=== PATIENT | female | born 1975 | race Caucasian/White ===

== ENCOUNTER → 2016-09-09 | Outpatient (CLI) | payer BC ==
[~2016-09-09] MED LIST: ALBU1AER9 INH; ENOX60IN SQ; HYDR2.5C37 TOP; HYDR25SU20 PR; OMEP20CA9 PO; SERT25TA PO; SERT50TA PO
--- NOTE | 2016-09-09 13:52 | DIAGNOSTIC IMAGING REPORT ---
ULTRASOUND KIDNEYS AND BLADDER CLINICAL HISTORY: Preoperative examination. Pdncwht-Ejleqmlgh-Pyqdn syndrome. COMPARISON STUDY: Abdominal CT dated 07/13/2014. TECHNIQUE: Real-time, grayscale, and color flow sonography of the kidneys and bladder is performed. Images are reviewed in the transverse and longitudinal planes. FINDINGS: Kidneys: The kidneys are normal in size and echotexture. The right kidney measures 8.8 x 3.6 x 3.9 cm and the left kidney measures 9.4 x 4.2 x 4.9 cm. There is no hydronephrosis. No shadowing renal calculi are identified. There is no sonographic evidence of contour deforming renal mass lesion. No perinephric fluid is identified. Bladder: The bladder is normal in appearance. Bilateral ureteral jets were seen. Upper abdomen: Splenic lesions noted. The spleen measures 14.2 cm in length. IMPRESSION: 1. Unremarkable sonographic assessment of the kidneys and bladder. 2. Splenomegaly. Electronically signed by: Marbin Eisenberg M.D. 09/09/2016 1:50 PM Dictated Date/Time: 09/09/2016 1:49 PM
--- NOTE | 2016-09-09 13:59 | DIAGNOSTIC IMAGING REPORT ---
Dyspnea ART DOP DUP UPPER EXT BILAT CLINICAL HISTORY: PREOP, CARDIAC MURMURS, SOB, [id number] SYNDROME TECHNIQUE: Real-time ultrasound COMPARISON STUDY: None FINDINGS: Right kidney measures 9 cm maximum dimension. Left kidney measures 9.4 cm maximum dimension. No evidence for hydronephrosis. Arterial Doppler demonstrates triphasic waveforms throughout. Velocities and peak characteristics are unremarkable. IMPRESSION: Normal study . No evidence for significant stenotic process. Electronically signed by: Toñito Escudero M.D. 09/09/2016 1:58 PM Dictated Date/Time: 09/09/2016 1:54 PM
--- NOTE | 2016-09-09 15:50 | ECHOCARDIOGRAM REPORT ---
*NOTICE TO RECEIVING LIBERTARIAN AGENCY This information is strictly Confidential and protected under [place] law. [place] law prohibits you from making any further disclosure of this information unless further disclosure is expressly permitted by the written consent of the person to whom it pertains or is authorized by law. A general authorization for the release of medical or other information is not sufficient for this purpose. Hospital accepts no responsibility if the information is made available to any other person, INCLUDING THE PATIENT. Interpretation Summary * Name: VALERIA MELENDEZ Study Date: 09/09/2016 01:37 PM BP: 115/83 mmHg * Patient Location: [facility] HR: 85 * : 1975 (M/d/yyyy) Gender: Female Height: 65 in * Age: 40 yrs Ethnicity: CA Weight: 135 lb * Ordering Physician: Cody Wade * Referring Physician: Cody Wade. * Performed By: Alyssa Milton RDCS * * Reason For Study: UNDIAGNOSED CARDIAC MURMURS, SOB * BSA: 1.7 m2 * History: UNDIAGNOSED CARDIAC MURMURS, SOB * -- Conclusions -- * Left ventricular systolic function is normal. * No regional wall motion abnormalities noted. * Ejection Fraction = 60-65%. * There is mild mitral regurgitation. Procedure Details * A complete two-dimensional transthoracic echocardiogram was performed (2D, M-mode, Doppler and color flow Doppler). Left Ventricle * The left ventricle is normal in size. * There is normal left ventricular wall thickness. * Left ventricular systolic function is normal. * Ejection Fraction = 60-65%. * No regional wall motion abnormalities noted. Right Ventricle * The right ventricle is not well visualized. * The right ventricular systolic function is normal as assessed by tricuspid annular plane systolic excursion (TAPSE) (normal >1.5 cm). Atria * The left atrial size is normal. * Right atrial size is normal. * No ASD detected; PFO is not assessed. Mitral Valve * The mitral valve is normal in structure and function. * There is mild mitral regurgitation. Tricuspid Valve * The tricuspid valve is normal in structure and function. * No significant tricuspid stenosis. * Significant tricuspid regurgitation is absent. Aortic Valve * The aortic valve is normal in structure and function. * No hemodynamically significant valvular aortic stenosis. * No aortic regurgitation is present. Pulmonic Valve * The pulmonary valve is not well seen, but the Doppler examination is normal without significant regurgitation or stenosis. * There is no significant pulmonary regurgitation. Great Vessels * The aortic root is normal size. * The pulmonary artery is not well visualized, but is probably normal size. Pericardium/Pleural * There is no pericardial effusion. Great Vessels * Normal inferior vena cava size and collapsability with sniff indicates a normal right atrial pressure of 3 mmHg MMode 2D Measurements and Calculations IVSd 0.61 cm IVSs 0.96 cm LVIDd 4.4 cm LVIDs 3.3 cm LVPWd 0.97 cm LVPWs 1.1 cm IVS/LVPW 0.62 FS 25.6 % EDV(Teich) 89.0 ml ESV(Teich) 43.9 ml EF(Teich) 50.7 % EDV(cubed) 86.8 ml ESV(cubed) 35.7 ml EF(cubed) 58.9 % % IVS thick 57.9 % % LVPW thick 10.6 % LV mass(C)d 108.9 grams LV mass(C)dI 65.1 grams/m\S\2 LV mass(C)s 96.8 grams LV mass(C)sI 57.8 grams/m\S\2 SV(Teich) 45.1 ml SI(Teich) 26.9 ml/m\S\2 SV(cubed) 51.1 ml SI(cubed) 30.5 ml/m\S\2 Ao root diam 3.1 cm Ao root area 7.4 cm\S\2 LA dimension 2.3 cm LA/Ao 0.74 LVAd ap4 26.9 cm\S\2 LVLd ap4 7.1 cm EDV(MOD-sp4) 84.1 ml EDV(sp4-el) 86.5 ml LVAs ap4 16.6 cm\S\2 LVLs ap4 6.0 cm ESV(MOD-sp4) 37.7 ml ESV(sp4-el) 38.6 ml EF(MOD-sp4) 55.2 % EF(sp4-el) 55.4 % SV(MOD-sp4) 46.5 ml SI(MOD-sp4) 27.8 ml/m\S\2 SV(sp4-el) 47.9 ml SI(sp4-el) 28.6 ml/m\S\2 Doppler Measurements and Calculations MV E max jessica 91.7 cm/sec MV A max jessica 57.7 cm/sec MV E/A 1.6 MV dec time 0.21 sec Ao V2 max 119.4 cm/sec Ao max PG 5.7 mmHg Ao max PG (full) 4.0 mmHg LV V1 max PG 1.7 mmHg LV V1 max 65.0 cm/sec TR max jessica 434.4 cm/sec
--- NOTE | 2016-09-12 08:02 | DIAGNOSTIC IMAGING REPORT ---
ULTRASOUND VENOUS DOPPLER LWR EXT BILA CLINICAL HISTORY: PREOP, CARDIAC MURMURS, SOB, [id number] SYNDROM COMPARISON STUDY: No previous studies for comparison. FINDINGS: Real-time and color flow Doppler imaging were performed. Flow was seen within the femoral, popliteal and calf veins with no intraluminal thrombus demonstrated. The saphenous vein is patent. IMPRESSION: No evidence of deep venous thrombosis. Electronically signed by: Edgar Sood M.D. 09/09/2016 1:45 PM Dictated Date/Time: 09/09/2016 1:45 PM
== END | disposition home or self-care (01) ==
LOC: C.ULTR 11:31
PROVIDERS: ATTEND Internal Medicine Clinical Cardiac Electrophysiology
DX: Z01.810 Encounter for preprocedural cardiovascular examination (principal); R01.1 Cardiac murmur, unspecified; R06.02 Shortness of breath; Q87.2 Congenital malformation syndromes predominantly involving limbs; Q76.49 Other congenital malformations of spine, not associated with scoliosis; R16.1 Splenomegaly, not elsewhere classified

== ENCOUNTER 2016-12-21 23:15 | Emergency (ER) | payer BC ==
[~2016-12-21] VITALS: Ht 165.1 cm; Wt 66.0 kg
[~2016-12-21 23:15] MED LIST changes: -ENOX60IN SQ; -HYDR2.5C37 TOP; -HYDR25SU20 PR; -SERT50TA PO
[2016-12-21 23:34] VITALS: Ht 165.1 cm; Wt 66.0 kg
[2016-12-21] MEDS ORDERED: SODIUM CHLORIDE 0.9% 1000ML 1,000 ML IV STA ×2 (23:53)
[2016-12-21] MEDS ORDERED: ONDANSETRON INJ 2 MG/ML 2 ML VIAL IV STA (23:53)
[2016-12-21] MEDS ORDERED: FAMOTIDINE 20MG/102 ML D5W IV STA (23:57)
[2016-12-22 00:05] VITALS: O2SAT 94
[2016-12-22 00:26] LABS: BASO % 0.7 %; BASO ABS # 0.03 K/uL (0-0.2); COMPLETE YES; EOS % 3.8 %; IG% 0.5 %; LYMPH ABS # 1.46 K/uL (1.2-3.4); MEAN CELL VOLUME 93.7 fL (80-100); MEAN CORPUSCULAR HEMOGLOBIN 30.2 pg (25-34); MEAN CORPUSCULAR HGB CONC 32.3 g/dl (32-36); MEAN PLATELET VOLUME 10.3 fL (7.4-10.4); MONO % 7.2 %; NEUT % 54.8 %; PLATELET COUNT 150 K/uL (130-400); RED BLOOD COUNT 4.27 M/uL (4.2-5.4); WHITE BLOOD COUNT 4.43 K/uL (4.8-10.8)
[2016-12-22 00:45] LABS: ALT/SGPT 33 U/L (12-78); AST/SGOT 21 U/L (15-37); BLOOD UREA NITROGEN 10 mg/dl (7-18); BUN/CREATININE RATIO 10.9 (10-20); CALCIUM 8.9 mg/dl (8.5-10.1); CARBON DIOXIDE 30 mmol/L (21-32); CHLORIDE 106 mmol/L (98-107); CREATININE 0.88 mg/dl (0.60-1.20); GLUCOSE 104 mg/dl (70-99); SODIUM 142 mmol/L (136-145)
[2016-12-22 00:48] LABS: ALKALINE PHOSPHATASE 70 U/L (45-117); CKMB/CK RATIO 2.1 (0-3.0)
[2016-12-22 00:57] LABS: INR 1.1 (0.9-1.1); PARTIAL THROMBOPLASTIN RATIO 1.1; PROTHROMBIN TIME (PATIENT) 11.5 SECONDS (9.0-12.0)
[2016-12-22 01:04] LABS: PREG INTERNAL NEGATIVE QC NEG CLEAR BACKGROUND; PREG INTERNAL POSITIVE QC POS CONTROL LINE
[2016-12-22] MEDS ORDERED: DiphenhydrAMINE HCL 50 MG/ML VIAL IV STA (01:56)
[2016-12-22] MEDS ORDERED: METHYLPREDNISOLONE 125 MG VIAL IV STA (01:56)
[2016-12-22] MEDS ORDERED: OPTIRAY 320 IV PRN (02:00)
[2016-12-22] MEDS ORDERED: SERT50TA PO (02:06)
[2016-12-22] MEDS ORDERED: ENOX60IN SQ (02:06)
--- NOTE | 2016-12-22 03:42 | EMERGENCY ROOM VISIT NOTE ---
History First contact with patient: 23:41 Chief Complaint: VOMITING Stated Complaint: HEAVY BREATHING, VOMITING Nursing Triage Summary: Pt states she had major back surgery in October. Has not been able to do a whole lot. Today didn't feel well and started to have increase nausea with emesis in evening and started feeling short of breath. History of Present Illness The patient is a 40 year old female who presents to the Emergency Room with complaints of nausea, vomiting and epigastric right upper quadrant pain for the past day. Patient is on Lovenox for PE from a back surgery in October. She had severe scoliosis. Patient denies chest pain, dyspnea, fever, chills, cough, congestion, back pain, leg pain or swelling. She is not missing dose of her Lovenox. Review of Systems See HPI for pertinent positives & negatives. A total of 10 systems reviewed and were otherwise negative. Past Medical/Surgical History Medical Problems: (1) ABDOMINAL ADHESIONS (2) OVARIAN CYSTS Surgical Problems: (1) H/O ovarian cystectomy Family History Patient reports no known family medical history. Social History Smoking Status: Never Smoker Marital Status: Housing Status: lives with family Occupation Status: employed Current/Historical Medications Scheduled Enoxaparin (Lovenox), 60 MG SQ Q12H Omeprazole (Prilosec), 20 MG PO DAILY Sertraline (Zoloft), 50 MG PO DAILY Allergies Coded Allergies: Azithromycin (Verified Allergy, Intermediate, RASH, 12/22/16) Ibuprofen (Verified Allergy, Intermediate, HIVES, 12/22/16) Iodinated Diagnostic Agents (Unverified Allergy, Unknown, UNKNOWN, 12/22/16 ) Physical Exam Vital Signs Date Time Temp Pulse Resp B/P Pulse Ox O2 Delivery O2 Flow Rate FiO2 12/22/16 03:30 85 18 115/71 92 Room Air 12/22/16 03:06 89 12/22/16 02:30 99 18 126/89 95 Room Air 12/22/16 01:21 86 18 120/63 96 Room Air 12/22/16 00:05 Room Air 12/22/16 00:05 94 Room Air 12/21/16 23:52 93 12/21/16 23:34 36.6 122 24 108/83 92 Room Air Physical Exam VITALS: Vitals are noted on the nurse's note and reviewed by myself. Vital signs stable. GENERAL: Pleasant female, in no acute distress, nondiaphoretic, well-developed well-nourished. SKIN: The skin was without rashes, erythema, edema, or bruising. There is no tenting of the skin. Capillary reflex less than 2 seconds. HEAD: Normocephalic atraumatic. EARS: External auditory canals clear, tympanic membranes pearly johnson without erythema or effusion bilaterally. EYES: Pupils equal round and reactive to light and accommodation. Conjunctivae without injection, sclerae without icterus. Extraocular movements intact. NOSE: Patent, turbinates without inflammation or discharge. MOUTH: Mucous membranes mild dry. Pharynx without erythema or exudate. Uvula midline. Airway patent. Tongue does not deviate. NECK: Supple without nuchal rigidity. No lymphadenopathy. No thyromegaly. Cervical spine is nontender. No JVD. HEART: Regular rate and rhythm without murmurs gallops or rubs. LUNGS: Clear to auscultation bilaterally without wheezes, rales or rhonchi. No dullness to percussion. No retractions or accessory muscle use. ABDOMEN: Positive bowel sounds x 4. Normal tympanic percussion. Soft, tender to palpation epigastric right upper quadrant, no CVA tenderness, without masses or organomegaly. No guarding or rebound tenderness. MUSCULOSKELETAL: No muscle atrophy, erythema, or edema noted. NEURO: Patient was alert and oriented to person place and time. Normal sensation to light and sharp touch. No focal neurological deficits. Medical Decision & Procedures Laboratory Results 12/22/16 00:05 Red Blood Count 4.27, Mean Corpuscular Volume 93.7, Mean Corpuscular Hemoglobin 30.2, Mean Corpuscular Hemoglobin Concent 32.3, Mean Platelet Volume 10.3, Neutrophils (%) (Auto) 54.8, Lymphocytes (%) (Auto) 33.0, Monocytes (%) (Auto) 7.2, Eosinophils (%) (Auto) 3.8, Basophils (%) (Auto) 0.7, Neutrophils # (Auto) 2.43, Lymphocytes # (Auto) 1.46, Monocytes # (Auto) 0.32, Eosinophils # (Auto) 0.17, Basophils # (Auto) 0.03 12/22/16 00:05 Test 12/22/16 00:05 12/22/16 00:11 White Blood Count 4.43 K/uL (4.8-10.8) Red Blood Count 4.27 M/uL (4.2-5.4) Hemoglobin 12.9 g/dL (12.0-16.0) Hematocrit 40.0 % (37-47) Mean Corpuscular Volume 93.7 fL (80-100) Mean Corpuscular Hemoglobin 30.2 pg (25-34) Mean Corpuscular Hemoglobin Concent 32.3 g/dl (32-36) Platelet Count 150 K/uL (130-400) Mean Platelet Volume 10.3 fL (7.4-10.4) Neutrophils (%) (Auto) 54.8 % Lymphocytes (%) (Auto) 33.0 % Monocytes (%) (Auto) 7.2 % Eosinophils (%) (Auto) 3.8 % Basophils (%) (Auto) 0.7 % Neutrophils # (Auto) 2.43 K/uL (1.4-6.5) Lymphocytes # (Auto) 1.46 K/uL (1.2-3.4) Monocytes # (Auto) 0.32 K/uL (0.11-0.59) Eosinophils # (Auto) 0.17 K/uL (0-0.5) Basophils # (Auto) 0.03 K/uL (0-0.2) RDW Standard Deviation 48.2 fL (36.4-46.3) RDW Coefficient of Variation 14.2 % (11.5-14.5) Immature Granulocyte % (Auto) 0.5 % Immature Granulocyte # (Auto) 0.02 K/uL (0.00-0.02) Prothrombin Time 11.5 SECONDS (9.0-12.0) Prothromb Time International Ratio 1.1 (0.9-1.1) Activated Partial Thromboplast Time 27.8 SECONDS (21.0-31.0) Partial Thromboplastin Ratio 1.1 Anion Gap 6.0 mmol/L (3-11) Est Creatinine Clear Calc Drug Dose 77.2 ml/min Estimated GFR () 95.9 Estimated GFR (Non- 82.8 BUN/Creatinine Ratio 10.9 (10-20) Calcium Level 8.9 mg/dl (8.5-10.1) Magnesium Level 2.0 mg/dl (1.8-2.4) Total Bilirubin 0.5 mg/dl (0.2-1) Direct Bilirubin 0.1 mg/dl (0-0.2) Aspartate Amino Transf (AST/SGOT) 21 U/L (15-37) Alanine Aminotransferase (ALT/SGPT) 33 U/L (12-78) Alkaline Phosphatase 70 U/L (45-117) Total Creatine Kinase 52 U/L (26-192) Creatine Kinase MB 1.1 ng/ml (0.5-3.6) Creatine Kinase MB Ratio 2.1 (0-3.0) Troponin I < 0.015 ng/ml (0-0.045) Total Protein 7.1 gm/dl (6.4-8.2) Albumin 3.6 gm/dl (3.4-5.0) Lipase 124 U/L (73-393) Human Chorionic Gonadotropin, Qual NEG (NEG) Bedside Lactic Acid Venous 0.97 mmol/L (0.90-1.70) Medications Administered Medications (Trade) Dose Ordered Sig/Akilah Route Start Time Stop Time Status Last Admin Dose Admin Sodium Chloride 1,000 ml @ 999 mls/hr Q1H1M STAT IV 12/21/16 23:53 12/22/16 00:53 DC 12/22/16 00:11 999 MLS/HR Sodium Chloride (Nss 1000ml) 1,000 ml @ 125 mls/hr Q8H STAT IV 12/21/16 23:53 12/22/16 07:52 12/22/16 01:24 125 MLS/HR Ondansetron HCl (Zofran Inj) 4 mg NOW STAT IV 12/21/16 23:53 12/21/16 23:56 DC 12/22/16 00:12 4 MG Famotidine (Pepcid 20mg/100 ml) 20 mg ONE STAT IV 12/21/16 23:57 12/21/16 23:59 DC 12/22/16 00:12 20 MG Methylprednisolone Sodium Succinate (Solu-Medrol IV) 125 mg NOW STAT IV 12/22/16 01:56 12/22/16 01:57 DC 12/22/16 02:12 125 MG Diphenhydramine HCl (Benadryl Inj) 50 mg NOW STAT IV 12/22/16 01:56 12/22/16 01:57 DC 12/22/16 02:12 50 MG ED Course Prior records/ancillary studies reviewed. Triage Nursing notes reviewed. Additional history obtained from family. The patient's history was concerning for abdominal pain. Differential diagnosis: Etiologies such as appendicitis, diverticulitis, PUD, biliary pathology, UTI, pancreatitis, obstruction, mesenteric ischemia, aortic pathology, infections, inflammatory bowel disease, renal colic, as well as others were entertained. Physical examination findings: As above. ER treatment provided: IV fluids, Zofran, Pepcid On reassessment the patient felt better. Diagnostics interpreted by me: ECG: Normal sinus, normal intervals, no acute ST-T wave changes. Impression normal sinus rhythm interpreted by myself The labs revealed no worrisome leukocytosis. Negative troponin. Imaging studies: CT concerning for enteritis per stat radiology Patient states she has to be premedicated with steroids prior to CT. This was done. She has had hives in the past. Chest x-ray with no acute consolidation, pneumothorax or free air. Postsurgical changes of the T-spine appreciated. Exam and history seem consistent with gastroenteritis. Patient felt much better after being medicated as above. She is tolerating fluids. She is advised to stay well-hydrated and to do bland diet next 2 days. She is advised follow-up family care in a few days or here in the ER sooner for abdominal pain , fevers, vomiting, worsening signs or symptoms or as needed. Patient did not have acute abdomen on exam. She is well-appearing.. By the evaluation outlined above emergent etiologies such as appendicitis, diverticulitis, PUD, biliary pathology, UTI, pancreatitis, obstruction, mesenteric ischemia, aortic pathology, infections, inflammatory bowel disease, renal colic, as well as others were deemed relatively unlikely. The pt informed about the findings as listed above. All questions were answered and pleased with the treatment. Return instructions were outlined and the patient was discharged in stable condition. Outpatient prescription management: Zofran Referral: The patient was referred back to their primary care physician for follow-up in 2 to 3 days for a recheck of the current condition. Case reviewed with my attending. Medical Decision As above Impression Primary Impression: Enteritis Additional Impression: Nausea and vomiting Departure Information Referrals Darvin Jerez M.D. (PCP) Patient Instructions [facility] Problem Qualifiers Additional Impression: Nausea and vomiting Vomiting type: unspecified Vomiting Intractability: non-intractable Qualified Codes: R11.2 - Nausea with vomiting, unspecified
[2016-12-22] MEDS ORDERED: ONDANSETRON HOME PACK 4MG OD TAB PO ONE (03:45)
[2016-12-22 03:46] VITALS: BP 115/71; PULSE 85; TEMP 36.6; O2SAT 92
--- NOTE | 2016-12-22 07:06 | DIAGNOSTIC IMAGING REPORT ---
ABDOMINAL ULTRASOUND, RIGHT UPPER QUADRANT HISTORY: Right upper quadrant pain. COMPARISON: Abdominal ultrasound and CT of the abdomen and pelvis July 13, 2014. FINDINGS: Liver morphology is normal. A 7 mm echogenic left hepatic lobe lesion likely reflects a hemangioma. There is no biliary ductal dilatation. The pancreatic body is normal. The head and tail are obscured by overlying bowel gas. There is no gallbladder wall thickening. There is trace pericholecystic fluid. Echogenic foci with comet tail artifact within the gallbladder wall reflects adenomyomatosis. A positive sonographic Reyez sign was reported. There is no right hydronephrosis. IMPRESSION: No gallstones or biliary ductal dilatation. Positive sonographic Reyez's sign reported by the technologist with possible trace pericholecystic fluid. This finding is of questionable clinical significance although a hepatobiliary scan could be obtained if suspicion for acute cholecystitis. Electronically signed by: Manolo Baumann M.D. 12/22/2016 7:05 AM Dictated Date/Time: 12/22/2016 7:02 AM
--- NOTE | 2016-12-22 07:39 | DIAGNOSTIC IMAGING REPORT ---
ABDOMEN AND PELVIS CT WITH IV CONTRAST CT DOSE: 309.75 mGy.cm HISTORY: Right-sided abdominal pain. TECHNIQUE: Multiaxial CT images of the abdomen and pelvis were performed following the use of intravenous contrast. COMPARISON STUDY: Abdomen and pelvis CT 07/13/2014. FINDINGS: Small right and trace left pleural effusions. Partial compressive atelectasis seen within the right lower lobe. Stable linear density within the left lower lobe suggesting atelectasis or scarring. No pneumoperitoneum or pneumatosis. Old right inferior pubic bone fractures. Scoliosis and thoracic spinal rods. Mild splenomegaly measuring 15 cm in length. Stable 18 mm enhancing lesion within the spleen. The liver, gallbladder, pancreas, and kidneys are unremarkable. Normal adrenal glands. IVC filter is noted. No retroperitoneal lymphadenopathy. The bladder is unremarkable. No definite bowel wall thickening or obstruction. Normal appendix. Fluid was seen within the colon. IMPRESSION: 1. Fluid within the colon. This could represent a gastroenteritis. 2. Small right and trace left pleural effusions. 3. Stable splenomegaly with an 18 mm enhancing lesion. 4. Normal appendix. Electronically signed by: Hu Bernal M.D. 12/22/2016 7:38 AM Dictated Date/Time: 12/22/2016 7:31 AM
--- NOTE | 2016-12-22 08:08 | DIAGNOSTIC IMAGING REPORT ---
CHEST ONE VIEW PORTABLE HISTORY: Atypical CHEST PAIN COMPARISON: Chest 02/23/2016. FINDINGS: Severe S-shaped scoliosis of the thoracolumbar spine with associated spinal rods and chest wall deformity. No pneumothorax. The heart is normal in size. Small right and trace left pleural effusions. Hazy appearance of the right lung base. No evidence for pulmonary edema. IMPRESSION: Small right and trace left pleural effusions. Hazy appearance the right lung base may represent an airspace opacity or the layering pleural fluid. Electronically signed by: Hu Bernal M.D. 12/22/2016 8:07 AM Dictated Date/Time: 12/22/2016 8:06 AM
[2016-12-30] MEDS ORDERED: HYDR2.5C37 TOP (08:35)
[2016-12-30] MEDS ORDERED: HYDR25SU20 PR (08:35)
== END 2016-12-22 03:46 | disposition home or self-care (01) ==
LOC: C.EDB 23:16 → C.EDA 12-22 03:46
DX: K52.9 Noninfective gastroenteritis and colitis, unspecified (principal); R11.2 Nausea with vomiting, unspecified; Z86.711 Personal history of pulmonary embolism; Z79.01 Long term (current) use of anticoagulants; Z79.899 Other long term (current) drug therapy

== ENCOUNTER 2016-12-29 13:00 | Observation (INO) | payer BC ==
[~2016-12-29] VITALS: Ht 165.1 cm; Wt 65.0 kg
[2016-12-29 06:30] VITALS: BP 112/81; PULSE 105; TEMP 36.6; O2SAT 95
[~2016-12-29 13:00] MED LIST changes: -ALBU1AER9 INH; +ENOX60IN SQ; -SERT25TA PO; +SERT50TA PO
[2016-12-29] MEDS ORDERED: SODIUM CHLORIDE 0.9% 1000ML 1,000 ML IV STA (13:48)
--- NOTE | 2016-12-29 14:01 | EMERGENCY ROOM VISIT NOTE ---
History First contact with patient: 13:36 Chief Complaint: RECTAL BLEEDING Stated Complaint: WHEN I GO TO BATHROOM BLOOD COMES OUT History of Present Illness The patient is a 41 year old female who presents to the Emergency Room with complaints of rectal bleeding. The patient was seen here last week and diagnosed with enteritis. The patient states that she has since developed dark red blood per rectum. The patient states that her stool is very soft. She states that there is dark red blood and occasionally bright red blood coming out of her rectum only with the bowel movement. The patient had major reconstructive surgery of her back in October in [place]. She has 2 rods placed in her thoracic spine. The patient subsequently developed a pulmonary embolus. She was started on Lovenox twice a day. She also had an IVC filter placed. The patient denies any fevers or chills. She denies any pain in her chest or trouble breathing. She denies any abdominal pain, vomiting. She denies any hematemesis. She denies any history of rectal bleeding. She denies any recent antibiotic use. She denies any recent travel. She has not had any stool studies done at this time. She reports a disorder in which her blood is "too thick" but cannot name the disorder. Review of Systems A 10 system review of systems was completed with positives and pertinent negatives listed in the HPI. Past Medical/Surgical History Medical Problems: (1) ABDOMINAL ADHESIONS (2) OVARIAN CYSTS (3) Rectal bleed Surgical Problems: (1) H/O ovarian cystectomy Family History Patient reports no known family medical history. Social History Smoking Status: Never Smoker Marital Status: Housing Status: lives with family Occupation Status: employed Current/Historical Medications Scheduled Enoxaparin (Lovenox), 60 MG SQ Q12H Omeprazole (Prilosec), 20 MG PO DAILY Sertraline (Zoloft), 50 MG PO DAILY Allergies Coded Allergies: Azithromycin (Verified Allergy, Intermediate, RASH, 12/29/16) Ibuprofen (Verified Allergy, Intermediate, HIVES, 12/29/16) Iodinated Diagnostic Agents (Verified Allergy, Unknown, UNKNOWN, 12/29/16) Physical Exam Vital Signs Date Time Temp Pulse Resp B/P (MAP) Pulse Ox O2 Delivery O2 Flow Rate FiO2 12/29/16 15:31 106 26 113/78 99 Room Air 12/29/16 15:01 104 20 103/80 98 Room Air 12/29/16 13:04 36.8 100 18 102/76 97 Room Air 12/29/16 06:30 36.6 105 10 112/81 (91) 95 Room Air 12/29/16 06:30 Room Air Physical Exam VITALS: Vitals are noted on the nurse's note and reviewed by myself. Vital signs stable. He patient is afebrile. She is not hypotensive, tachycardic or hypoxic. GENERAL: This is a 41-year-old female, in no acute distress, nondiaphoretic, well-developed well-nourished. SKIN: The skin was without rashes, erythema, edema, or bruising. There is no tenting of the skin. Capillary reflex less than 2 seconds. HEAD: Normocephalic atraumatic. EARS: The external ears are normal in appearance EYES: Pupils equal round and reactive to light and accommodation. Conjunctivae without injection, sclerae without icterus. Extraocular movements intact. NOSE: Patent, turbinates without inflammation or discharge. MOUTH: Mucous membranes moist. Tonsils are not enlarged. Pharynx without erythema or exudate. Uvula midline. Airway patent. Tongue does not deviate. NECK: Supple without nuchal rigidity. No lymphadenopathy. No thyromegaly. Cervical spine is nontender. No JVD. HEART: Regular rate and rhythm without murmurs gallops or rubs. LUNGS: Clear to auscultation bilaterally without wheezes, rales or rhonchi. No retractions or accessory muscle use. ABDOMEN: Positive bowel sounds x 4. Soft, nontender, without masses or organomegaly. RECTAL: The patient refuses a rectal exam at this time. The patient states that because of the rods in her thoracic spine and she cannot then. She states she cannot lie flat. She states she cannot lay on her side or bend at the waist. with nursing staff assistance I was able to perform a rectal exam. There are multiple external, nonthrombosed hemorrhoids. One is irritated but not actively bleeding. Digital rectal exam does reveal blood proximal to the external hemorrhoids. This is guaiac positive MUSCULOSKELETAL: No muscle atrophy, erythema, or edema noted. Full range of motion without joint tenderness in all extremities. No tenderness to palpation. Normal gait. Strength 5/5 throughout. NEURO: Patient was alert and oriented to person place and time. Normal sensation to light and sharp touch. Deep tendon reflexes 2+ throughout. No focal neurological deficits. Medical Decision & Procedures ER Provider Diagnostic Interpretation: CHEST ONE VIEW PORTABLE CLINICAL HISTORY: hematachezia COMPARISON STUDY: 12/22/2016 FINDINGS: There is a pronounced thoracic levoscoliosis. There are postsurgical changes of spinal rodding. The cardiac and mediastinal contours remain stable. There is no focal pulmonary consolidation. There is no failure. There is minor blunting of the left lateral costophrenic angle. There is a suspected subpulmonic right pleural effusion. The study remains similar to the preceding examination. IMPRESSION: 1. Pronounced scoliosis 2. No evidence of focal pulmonary consolidation 3. Subpulmonic right pleural effusion. Suspected trace left pleural effusion. Laboratory Results 12/29/16 14:30 Red Blood Count 4.45, Mean Corpuscular Volume 93.9, Mean Corpuscular Hemoglobin 31.9, Mean Corpuscular Hemoglobin Concent 34.0, Mean Platelet Volume 10.7, Neutrophils (%) (Auto) 56.9, Lymphocytes (%) (Auto) 33.0, Monocytes (%) (Auto) 5.8, Eosinophils (%) (Auto) 3.3, Basophils (%) (Auto) 0.4, Neutrophils # (Auto) 2.93, Lymphocytes # (Auto) 1.70, Monocytes # (Auto) 0.30, Eosinophils # (Auto) 0.17, Basophils # (Auto) 0.02 12/29/16 14:30 Test 12/29/16 14:18 12/29/16 14:30 Urine Color YELLOW Urine Appearance CLEAR (CLEAR) Urine pH 5.5 (4.5-7.5) Urine Specific [place] 1.015 (1.000-1.030) Urine Protein NEG (NEG) Urine Glucose (UA) NEG (NEG) Urine Ketones NEG (NEG) Urine Occult Blood 2+ (NEG) Urine Nitrite NEG (NEG) Urine Bilirubin NEG (NEG) Urine Urobilinogen NEG (NEG) Urine Leukocyte Esterase TRACE (NEG) Urine WBC (Auto) 1-5 /hpf (0-5) Urine RBC (Auto) 0-4 /hpf (0-4) Urine Hyaline Casts (Auto) 0 /lpf (0-5) Urine Epithelial Cells (Auto) >30 /lpf (0-5) Urine Bacteria (Auto) NEG (NEG) White Blood Count 5.15 K/uL (4.8-10.8) Red Blood Count 4.45 M/uL (4.2-5.4) Hemoglobin 14.2 g/dL (12.0-16.0) Hematocrit 41.8 % (37-47) Mean Corpuscular Volume 93.9 fL (80-100) Mean Corpuscular Hemoglobin 31.9 pg (25-34) Mean Corpuscular Hemoglobin Concent 34.0 g/dl (32-36) Platelet Count 140 K/uL (130-400) Mean Platelet Volume 10.7 fL (7.4-10.4) Neutrophils (%) (Auto) 56.9 % Lymphocytes (%) (Auto) 33.0 % Monocytes (%) (Auto) 5.8 % Eosinophils (%) (Auto) 3.3 % Basophils (%) (Auto) 0.4 % Neutrophils # (Auto) 2.93 K/uL (1.4-6.5) Lymphocytes # (Auto) 1.70 K/uL (1.2-3.4) Monocytes # (Auto) 0.30 K/uL (0.11-0.59) Eosinophils # (Auto) 0.17 K/uL (0-0.5) Basophils # (Auto) 0.02 K/uL (0-0.2) RDW Standard Deviation 48.7 fL (36.4-46.3) RDW Coefficient of Variation 14.2 % (11.5-14.5) Immature Granulocyte % (Auto) 0.6 % Immature Granulocyte # (Auto) 0.03 K/uL (0.00-0.02) Prothrombin Time 11.6 SECONDS (9.0-12.0) Prothromb Time International Ratio 1.1 (0.9-1.1) Activated Partial Thromboplast Time 29.4 SECONDS (21.0-31.0) Partial Thromboplastin Ratio 1.1 D-Dimer 620 ug/L FEU (0-500) Anion Gap 8.0 mmol/L (3-11) Est Creatinine Clear Calc Drug Dose 99.0 ml/min Estimated GFR () 126.8 Estimated GFR (Non- 109.4 BUN/Creatinine Ratio 19.1 (10-20) Calcium Level 8.7 mg/dl (8.5-10.1) Magnesium Level 2.1 mg/dl (1.8-2.4) Total Bilirubin 0.5 mg/dl (0.2-1) Aspartate Amino Transf (AST/SGOT) 10 U/L (15-37) Alanine Aminotransferase (ALT/SGPT) 18 U/L (12-78) Alkaline Phosphatase 73 U/L (45-117) Total Protein 7.3 gm/dl (6.4-8.2) Albumin 3.8 gm/dl (3.4-5.0) Globulin 3.5 gm/dl (2.5-4.0) Albumin/Globulin Ratio 1.1 (0.9-2) Lipase 137 U/L (73-393) Medications Administered Medications (Trade) Dose Ordered Sig/[place] Route Start Time Stop Time Status Last Admin Dose Admin Sodium Chloride 1,000 ml @ 999 mls/hr Q1H1M STAT IV 12/29/16 13:48 12/29/16 14:48 DC 12/29/16 13:48 999 MLS/HR Pantoprazole Sodium 80 mg/ Dextrose 120 ml @ 480 mls/hr 1500 IV 12/29/16 15:00 12/29/16 15:14 DC 12/29/16 15:05 480 MLS/HR Pantoprazole Sodium 40 mg/ Dextrose 100 ml @ 20 mls/hr Q5H IV 12/29/16 15:00 12/29/16 19:59 DC 12/29/16 15:30 20 MLS/HR ED Course The patient was seen and examined. Previous visits were reviewed. The patient does not have a fever or leukocytosis. She does not have any significant electrolyte abnormalities. Lipase was not elevated. INR is 1.1. Urinalysis suggests contamination with blood and epithelial cells. Chest x-ray does not reveal any acute abnormalities, specifically no significant change compared to last week. The patient was hydrated with normal saline solution. She was started on a Protonix bolus and drip. The patient presents to the emergency department with rectal bleeding. The patient has a complicated medical history and she is currently on Lovenox injections. She was diagnosed with enteritis last week. The bleeding is new over the last several days. The patient is hemodynamically stable. She was unable to provide a stool sample. She does have bright red blood per rectum on exam. She does have multiple hemorrhoids but they're not actively bleeding. Blood was obtained proximal to the hemorrhoids on digital rectal exam. The patient would benefit from further evaluation and management in the hospital. The case was discussed with hospitalist service and they will evaluate the patient. The case was discussed with Dr. Velazco who agrees with the assessment and treatment plan Medical Decision DIFFERENTIAL DIAGNOSIS: Hepatitis, cholecystitis, cholangitis, biliary colic, pancreatitis, pneumonia, subdiaphragmatic abscess, appendicitis, inguinal hernia , nephrolithiasis, inflammatory bowel disease, mesenteric adenitis, peptic ulcer disease, GERD, gastritis, pancreatitis, myocardial infarction, pericarditis, ruptured aortic aneurysm, appendicitis, gastroenteritis, bowel obstruction, splenic infarct, diverticulitis, mesenteric ischemia, metabolic, peritonitis, among others. Impression Primary Impression: Rectal bleeding Departure Information Dispostion Admitted as an inpatient Condition GOOD Referrals Darvin Jerez M.D. (PCP) Patient Instructions My [facility]
--- NOTE | 2016-12-29 14:33 | DIAGNOSTIC IMAGING REPORT ---
CHEST ONE VIEW PORTABLE CLINICAL HISTORY: hematachezia COMPARISON STUDY: 12/22/2016 FINDINGS: There is a pronounced thoracic levoscoliosis. There are postsurgical changes of spinal rodding. The cardiac and mediastinal contours remain stable. There is no focal pulmonary consolidation. There is no failure. There is minor blunting of the left lateral costophrenic angle. There is a suspected subpulmonic right pleural effusion. The study remains similar to the preceding examination. IMPRESSION: 1. Pronounced scoliosis 2. No evidence of focal pulmonary consolidation 3. Subpulmonic right pleural effusion. Suspected trace left pleural effusion. Electronically signed by: Edgar Sood M.D. 12/29/2016 2:32 PM Dictated Date/Time: 12/29/2016 2:30 PM
[2016-12-29 14:40] LABS: BASO % 0.4 %; BASO ABS # 0.02 K/uL (0-0.2); COMPLETE YES; EOS % 3.3 %; HEMATOCRIT 41.8 % (37-47); IG% 0.6 %; MEAN CELL VOLUME 93.9 fL (80-100); MEAN CORPUSCULAR HEMOGLOBIN 31.9 pg (25-34); MEAN PLATELET VOLUME 10.7 fL (7.4-10.4); MONO % 5.8 %; NEUT % 56.9 %; PLATELET COUNT 140 K/uL (130-400); RED BLOOD COUNT 4.45 M/uL (4.2-5.4); WHITE BLOOD COUNT 5.15 K/uL (4.8-10.8)
[2016-12-29 14:48] LABS: INR 1.1 (0.9-1.1); PARTIAL THROMBOPLASTIN RATIO 1.1; PROTHROMBIN TIME (PATIENT) 11.6 SECONDS (9.0-12.0)
[2016-12-29 14:50] LABS: URINE APPEARANCE CLEAR (CLEAR); URINE BILIRUBIN NEG (NEG); URINE COLOR YELLOW; URINE EPITHELIAL CELL AUTO >30 /lpf (0-5); URINE NITRITE NEG (NEG); URINE PH 5.5 (4.5-7.5); URINE SPECIFIC GRAVITY 1.015 (1.000-1.030); UROBILINOGEN NEG (NEG); ZZUR CULT IF INDIC CLEAN CATCH NO
[2016-12-29 14:56] LABS: MANUAL MICROSCOPIC REQUIRED? NO; REVIEW REQ? NO
[2016-12-29] MEDS ORDERED: PANTOprazole INJ 80 MG in DEXTROSE 5% 100ML IV SCH (15:00)
[2016-12-29] MEDS ORDERED: PANTOprazole INJ 40 MG in DEXTROSE 5% 100ML IV SCH (15:00)
[2016-12-29 15:12] LABS: BUN/CREATININE RATIO 19.1 (10-20); CALCIUM 8.7 mg/dl (8.5-10.1); CREATININE 0.68 mg/dl (0.60-1.20); MAGNESIUM 2.1 mg/dl (1.8-2.4); POTASSIUM 3.9 mmol/L (3.5-5.1)
[2016-12-29 15:15] LABS: ALB/GLOB RATIO 1.1 (0.9-2)
[2016-12-29] MEDS ORDERED: MAGNESIUM HYDROXIDE SUSP 30 ML UDC PO PRN (16:15)
[2016-12-29] MEDS ORDERED: ACETAMINOPHEN 325 MG TAB PO PRN (16:15)
[2016-12-29] MEDS ORDERED: POLYETHYLENE (MIRALAX) 17 GM PACK PO PRN (16:15)
[2016-12-29] MEDS ORDERED: ONDANSETRON INJ 2 MG/ML 2 ML VIAL IV PRN (16:15)
[2016-12-29] MEDS ORDERED: ALUMINUM/MAGNESIUM/SIMETH (MAALOX MAX) 30 ML UDC PO PRN (16:15)
[2016-12-29] MEDS ORDERED: IV FLUIDS COMPLETED PRN (16:30)
[2016-12-29 17:03] VITALS: O2SAT 99; Ht 165.1 cm; Wt 65.0 kg
[2016-12-29 17:20] VITALS: O2SAT 96
[2016-12-29] MEDS ORDERED: ANUSOL SUPP 1 EA PR ONE (17:43)
[2016-12-29] MEDS ORDERED: ANUSOL SUPP 1 EA PR PRN (17:45)
[2016-12-29] MEDS ORDERED: ENOXAPARIN 60 MG/0.6 ML SYR SQ SCH (18:30)
[2016-12-29] MEDS ORDERED: NURSING VERBAL MED ORDER ONE (18:45)
--- NOTE | 2016-12-29 19:11 | History and Physical ---
History & Physical Date & Time of Service: Dec 29, 2016 at 19:05 Chief Complaint: Rectal Bleed Primary Care Physician: Darvin Jerez M.D. Past Medical/Surgical History Surgical Problems: (1) H/O ovarian cystectomy Status: Resolved Family History Patient reports no known family medical history. Social History Smoking Status: Never Smoker Marital Status: Occupational Status: employed Immunizations History of Influenza Vaccine: Unknown History of Tetanus Vaccine?: Unknown History of Pneumococcal: Unknown History of Hepatitis B Vaccine: Unknown Multi-Drug Resistant Organisms History of MDRO: No Allergies Coded Allergies: Azithromycin (Verified Allergy, Intermediate, RASH, 12/29/16) Ibuprofen (Verified Allergy, Intermediate, HIVES, 12/29/16) Iodinated Diagnostic Agents (Verified Allergy, Unknown, UNKNOWN, 12/29/16) Home Medications Scheduled Enoxaparin (Lovenox), 60 MG SQ Q12H Omeprazole (Prilosec), 20 MG PO DAILY Sertraline (Zoloft), 50 MG PO DAILY Physical Exam Vital Signs Date Time Temp Pulse Resp B/P (MAP) Pulse Ox O2 Delivery O2 Flow Rate FiO2 12/29/16 17:20 106 28 112/76 96 Room Air 12/29/16 17:03 99 Room Air 12/29/16 15:31 106 26 113/78 99 Room Air 12/29/16 15:01 104 20 103/80 98 Room Air 12/29/16 13:04 36.8 100 18 102/76 97 Room Air Diagnostics Laboratory Results Results Past 24 Hours Test 12/29/16 14:18 12/29/16 14:30 Range/Units Urine Color YELLOW Urine Appearance CLEAR CLEAR Urine pH 5.5 4.5-7.5 Urine Specific [place] 1.015 1.000-1.030 Urine Protein NEG NEG Urine Glucose (UA) NEG NEG Urine Ketones NEG NEG Urine Occult Blood 2+ NEG Urine Nitrite NEG NEG Urine Bilirubin NEG NEG Urine Urobilinogen NEG NEG Urine Leukocyte Esterase TRACE NEG Urine WBC (Auto) 1-5 0-5 /hpf Urine RBC (Auto) 0-4 0-4 /hpf Urine Hyaline Casts (Auto) 0 0-5 /lpf Urine Epithelial Cells (Auto) >30 0-5 /lpf Urine Bacteria (Auto) NEG NEG White Blood Count 5.15 4.8-10.8 K/uL Red Blood Count 4.45 4.2-5.4 M/uL Hemoglobin 14.2 12.0-16.0 g/dL Hematocrit 41.8 37-47 % Mean Corpuscular Volume 93.9 80-100 fL Mean Corpuscular Hemoglobin 31.9 25-34 pg Mean Corpuscular Hemoglobin Concent 34.0 32-36 g/dl Platelet Count 140 130-400 K/uL Mean Platelet Volume 10.7 7.4-10.4 fL Neutrophils (%) (Auto) 56.9 % Lymphocytes (%) (Auto) 33.0 % Monocytes (%) (Auto) 5.8 % Eosinophils (%) (Auto) 3.3 % Basophils (%) (Auto) 0.4 % Neutrophils # (Auto) 2.93 1.4-6.5 K/uL Lymphocytes # (Auto) 1.70 1.2-3.4 K/uL Monocytes # (Auto) 0.30 0.11-0.59 K/uL Eosinophils # (Auto) 0.17 0-0.5 K/uL Basophils # (Auto) 0.02 0-0.2 K/uL RDW Standard Deviation 48.7 36.4-46.3 fL RDW Coefficient of Variation 14.2 11.5-14.5 % Immature Granulocyte % (Auto) 0.6 % Immature Granulocyte # (Auto) 0.03 0.00-0.02 K/uL Prothrombin Time 11.6 9.0-12.0 SECONDS Prothromb Time International Ratio 1.1 0.9-1.1 Activated Partial Thromboplast Time 29.4 21.0-31.0 SECONDS Partial Thromboplastin Ratio 1.1 D-Dimer 620 0-500 ug/L FEU Sodium Level 141 136-145 mmol/L Potassium Level 3.9 3.5-5.1 mmol/L Chloride Level 106 98-107 mmol/L Carbon Dioxide Level 27 21-32 mmol/L Anion Gap 8.0 3-11 mmol/L Blood Urea Nitrogen 13 7-18 mg/dl Creatinine 0.68 0.60-1.20 mg/dl Est Creatinine Clear Calc Drug Dose 99.0 ml/min Estimated GFR () 126.8 Estimated GFR (Non- 109.4 BUN/Creatinine Ratio 19.1 10-20 Random Glucose 90 70-99 mg/dl Calcium Level 8.7 8.5-10.1 mg/dl Magnesium Level 2.1 1.8-2.4 mg/dl Total Bilirubin 0.5 0.2-1 mg/dl Aspartate Amino Transf (AST/SGOT) 10 15-37 U/L Alanine Aminotransferase (ALT/SGPT) 18 12-78 U/L Alkaline Phosphatase 73 45-117 U/L Total Protein 7.3 6.4-8.2 gm/dl Albumin 3.8 3.4-5.0 gm/dl Globulin 3.5 2.5-4.0 gm/dl Albumin/Globulin Ratio 1.1 0.9-2 Lipase 137 73-393 U/L Impression Assessment and Plan obs #[id number] Advanced Directives Existing Living Will: No Existing Power of Nuclear Reactor Engineer: No VTE Prophylaxis VTE Risk Assessment Done? Y/N: Yes Risk Level: Moderate
--- NOTE | 2016-12-29 20:20 | HISTORY & PHYSICAL EXAMINATION ---
DATE OF ADMISSION: 12/29/2016 CHIEF COMPLAINT: Rectal bleeding while on Lovenox. HISTORY OF PRESENT ILLNESS: The patient is a very pleasant 41-year-old female who about 6 weeks or so ago had an extensive spinal surgery for scoliosis. She notes it was about a 10-hour surgery and I believe it was almost the entirety of her thoracic spine operated on and then postoperatively, she developed PEs. She does not recall what the exact etiology is, but she notes in her preop workup she was told that she has some sort of condition where her blood is "too thick" however, note on the PCP's chart, it sounds like a rather extensive and traumatic surgical experience where she underwent a T1 through T11 fusion on 11/02/2016 with about 2.5 liters of blood loss requiring 6 units of packed red cells, 6 units of platelets, 4 units of cryoprecipitate at 10 hour procedure and then by the end of her ICU stay, she had 13 units of packed red blood cells, 10 units of FFP, 7 units of platelets units, 2 units of cryoprecipitate and 875 mL of blood from a Cell Saver. She was found to have a PE, I believe 3 days postop and then she was started on Lovenox. Her PE apparently was a multifocal right and lingular left pulmonary emboli. Of note, that she currently feels no chest pain, no shortness of breath, no dyspnea and she notes that she last year was in the car for about 18 hours nonstop on a trip to [place] with no clots and she has also had multiple other surgeries (see below) without ever having formed clots. Currently, she was told that she is recommended to be about 6 months of anticoagulation for her current PEs. In terms of her bleeding, she notes that it started about a week ago. It is bright red blood. It is only when she has a bowel movement. She is having soft bowel movements, but she does note that immediately postop, she was on pain meds, had to be on stool softeners, had some of the expected postop constipation and she would not be surprised that all of these hemorrhoids, she has never had a bowel movement that is pure blood. She has never had blood simply leaking out. It is always just been bright red blood with the bowel movement. Because it was fairly minor a week ago, she and her decided just to watch and wait, but as it continued and then today progressed and worsened, she decided to come to the ER for further evaluation. She also denies any other signs or symptoms of blood loss, not feeling weak, lightheaded or dizzy. Her heart rate is up, but she relates that it was up the last time she was in the ER and thinks it probably up more just because of the stress of the situation. REVIEW OF SYSTEMS: Otherwise negative, except for as above. No abdominal pain, no nausea, no postprandial pain, no vomiting, no hematemesis. PAST MEDICAL HISTORY: Most significant for [id number]-[id number] syndrome, some sort of hypercoagulable stage, reactive airway disease, prior thrombocytopenia, restrictive lung disease related predominantly to her scoliosis, vitamin D deficiency, depression and anxiety, scoliosis now status post. MEDICATIONS: Lovenox 60 mg subQ q. 12 hours, omeprazole 20 mg daily, and Zoloft 50 mg daily. PAST SURGICAL HISTORY: Her spine surgery as outlined above on 11/02/2016. She has had a hysteroscopy, hysterectomy, oophorectomy and tubal ligation all of without any perioperative clotting issues. FAMILY HISTORY: She specifically denies any family history of clotting disorders and her mother is present and agrees with this. There is a family history of diabetes in her father. She is . SOCIAL HISTORY: No tobacco. No significant alcohol use. ALLERGIES: ZITHROMAX, IBUPROFEN, IODINE CONTRAST. PHYSICAL EXAMINATION: VITAL SIGNS: Temperature 36.8, pulse 100, respiratory rate 18, blood pressure 102/76, 97% on room air. GENERAL: She is awake, alert, oriented x3, pleasant, in no acute distress. HEENT: Normocephalic, atraumatic. Mucous membranes are moist. CARDIOVASCULAR: Regular, somewhat tachycardic. No rubs, murmurs, or gallops. LUNGS: Clear to auscultation bilaterally. No rales, rhonchi, or wheezes with good effort. ABDOMEN: Soft, nondistended, nontender, no masses or organomegaly. RECTAL: Deferred by me because it was just done by the ER shortly before I saw her. Please reference to Dr. Candice Anand's note, but in discussion with Candice, she noted she had extensive external hemorrhoids, none of which were really noted to be bleeding but just on digital rectal exam bright red blood was noted raising suspicion for an internal hemorrhoidal bleeding. EXTREMITIES: Show no cyanosis, clubbing or edema. No calf tenderness. Her right leg is markedly bigger than her left. 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 NEUROLOGIC: Cranial nerves II-XII to be grossly intact. Gross motor and sensory are intact. MENTAL STATE: Shows good recent and remote recall. Normal mood and affect. Good judgment and insight. MUSCULOSKELETAL: Reveals no gross lesions. LABS AND DIAGNOSTICS: CBC with a white count of 5.15, hemoglobin 14.2, platelets 140. Sodium 141, potassium 3.9, chloride 106, CO2 27, BUN 13, creatinine 0.68, calcium 8.7, glucose 90, mag 2.1 with a total bilirubin of 0.5, AST 10, ALT 18, alk phos 73, total protein 7.3, albumin 3.8, lipase 137. PT 11.6, INR 1.1, PTT 29.4. Urinalysis yellow, clear, specific gravity 1.015, 2+ blood, trace leukocyte esterase, greater than 30 red cells. Chest x-ray shows pronounced scoliosis, no evidence of pulmonary consolidation, subpulmonic right pleural effusion, suspected trace left effusion, postsurgical changes with spinal rodding. ASSESSMENT AND PLAN: 1. Gastrointestinal bleeding with recent PEs while still on anticoagulation. We had an extensive discussion about this given that her signs and symptoms as well as physical exam are most consistent with internal hemorrhoids being the culprit for the bleeding. Given the fact that she has been bleeding for a week without any real signs or symptoms of hemodynamic compromise or without any significant anemia and given that overall retirement risk, and benefit, would favor treating the PEs adequately so as to best protect her against post-PE, pulmonary hypertension and right heart strain if at all possible and want to continue anticoagulation for the PEs. Given that she does not appear to really be having any significant hemorrhage, this appears to be the best balance of risks and benefits and obviously because she is still showing bleeding, we will start this journey by observing her in the hospital. If she shows any significant drop in her hemoglobin, any true hemorrhage, any hemodynamic compromise, etc., then obviously we will need to stop anticoagulation and she does have an IVC filter in place to protect her from future blood clots, but obviously anticoagulation would be the treatment of choice. As long as she does not show any significant bleeding, would continue the anticoagulation and ongoing outpatient followup. She expresses understanding and agreement with this plan, as does her mother. We will follow hemoglobin q. 6 hours Follow her vitals closely and follow her bowel movements. In regards to the hemorrhoids, see below. 2. Hemorrhoids. She has extensive external hemorrhoids and bright red blood, just inside the rectum on exam raising high suspicion of internal hemorrhoids. We will treat it with Anusol to try to calm down the hemorrhoids even as we are still anticoagulating and follow. At some point in the near future, she will need a colonoscopy for completeness to ensure there is no other source of the bleed and obviously for potential treatment of hemorrhoids if required. 3. Depression and anxiety. Continue her Zoloft. 4. Disposition: She will be observed under the [facility] Hospitalist service on [facility].
[2016-12-29] MEDS: HYDROCORTISONE HC 2.5% CRM 30GM TUBE EXT SCH (20:48)
[2016-12-29] MEDS: ENOXAPARIN 60 MG/0.6 ML SYR SQ SCH (20:50)
[2016-12-29 21:02] VITALS: PULSE 96
[2016-12-29 22:50] VITALS: BP 111/78; PULSE 82; TEMP 36.8; O2SAT 97
[2016-12-30 07:11] VITALS: BP 104/70; PULSE 77; TEMP 36.5; O2SAT 93
[2016-12-30] MEDS ORDERED: HYDR25SU20 PR (08:35)
[2016-12-30] MEDS ORDERED: HYDR2.5C37 TOP (08:35)
--- NOTE | 2016-12-30 08:41 | Discharge Instructions ---
Discharge Instructions Date of Service Dec 30, 2016. Admission Reason for Admission: Rectal Bleed Discharge Discharge Diagnosis / Problem: rectal bleeding almost certainly from internal hemorrhoids Discharge Goals Goal(s): Diagnostic testing, Therapeutic intervention Activity Recommendations Activity Limitations: resume your previous activity . Instructions / Follow-Up Instructions / Follow-Up bleeding - the pattern of the bleeding, and your exam, are both quite consistent with bleeding from internal hemorrhoids -fortunately, despite bleeding symptoms for a week, we're not seeing any signs or symptoms of serious blood loss- because of this, it's more important for your intermission coordinator health to treat the clots appropriately (ie stay on the lovenox for now) -if you see worsening appearance of bleeding, we'd still definitely want you checked out -- as long as you're not feeling any blood loss related symptoms ( weak, lightheaded, dizzy, faint or short of breath) then it would be OK to just have them check vital signs and blood counts in the office; obviously if you were to show any of those worry symptoms, then we'd want you back in the ER -we'll treat the hemorrhoids for 5 more days with anusol to calm things down -- use the cream as first-line because it's less uncomfortable; because it's internal hemorrhoids that are bleeding, if you notice that the cream isn't really helping, you can have the prescription for the suppository filled and use it instead (don't use both at the same time) ---if the bleeding persists, internal hemorrhoids can be banded to get them to stop bleeding ---at some point in the next few weeks, we'd recommend being seen by gastroenterology to give consideration for a colonoscopy for completeness // to evaluate further up the colon for any other (highly unlikely) possible causes of bleeding -- Dr Jerez can help facilitate this ----follow up with Dr Jerez or part of the team in his office next week to continue your care and once again, happy 41th. don't worry, this isn't your "new normal"! Current Hospital Diet Patient's current hospital diet: Clear Liquid Diet Discharge Diet Recommended Diet: Regular Diet (diets high in fiber do sometimes help with hemorrhoids, including reducing how much they bleed) Pending Studies Studies pending at discharge: yes List of pending studies: the ER had ordered numerous stool studies for infections, these are not at all likely to show positive results, but are still pending Medical Emergencies . Who to Call and When: Medical Emergencies: If at any time you feel your situation is an emergency, please call 911 immediately. . Non-Emergent Contact Non-Emergency issues call your: Primary Care Provider . . "Provider Documentation" section prepared by Cristofer Bearden. . VTE Core Measure Inpt VTE Proph given/why not?: Enoxaparin (Lovenox)SQ (PE treatment dosing)
[2016-12-30] MEDS: HYDROCORTISONE HC 2.5% CRM 30GM TUBE EXT SCH (08:47)
[2016-12-30] MEDS: ENOXAPARIN 60 MG/0.6 ML SYR SQ SCH (08:48)
[2016-12-30] MEDS ORDERED: SERTRALINE HCL 50 MG TAB PO SCH (09:00)
[2016-12-30] MEDS ORDERED: PANTOprazole SOD 40 MG TAB PO SCH (09:00)
[2016-12-30 10:20] VITALS: BP 104/70; PULSE 77; TEMP 36.5; O2SAT 93
--- NOTE | 2016-12-30 13:55 | Discharge Summary ---
Discharge Summary Date of Service Dec 30, 2016. Discharge Summary Admission Date: Dec 29, 2016 at 16:09 Discharge Date: Dec 30, 2016 Discharge Disposition: Home Principal Diagnosis: GI bleeding due to internal hemorrhoids Immunizations: Have You Had Influenza Vaccine: Unknown History of Tetanus Vaccine?: Unknown History of Pneumococcal: Unknown History of Hepatitis B Vaccine: Unknown Procedures: Last 24 Hours Test 12/29/16 14:18 12/29/16 14:30 12/29/16 19:30 12/29/16 19:45 Urine Color YELLOW Urine Appearance CLEAR Urine pH 5.5 Urine Specific [place] 1.015 Urine Protein NEG Urine Glucose (UA) NEG Urine Ketones NEG Urine Occult Blood 2+ Urine Nitrite NEG Urine Bilirubin NEG Urine Urobilinogen NEG Urine Leukocyte Esterase TRACE Urine WBC (Auto) 1-5 /hpf Urine RBC (Auto) 0-4 /hpf Urine Hyaline Casts (Auto) 0 /lpf Urine Epithelial Cells (Auto) >30 /lpf Urine Bacteria (Auto) NEG White Blood Count 5.15 K/uL Red Blood Count 4.45 M/uL Hemoglobin 14.2 g/dL 13.5 g/dL Hematocrit 41.8 % Mean Corpuscular Volume 93.9 fL Mean Corpuscular Hemoglobin 31.9 pg Mean Corpuscular Hemoglobin Concent 34.0 g/dl Platelet Count 140 K/uL Mean Platelet Volume 10.7 fL Neutrophils (%) (Auto) 56.9 % Lymphocytes (%) (Auto) 33.0 % Monocytes (%) (Auto) 5.8 % Eosinophils (%) (Auto) 3.3 % Basophils (%) (Auto) 0.4 % Neutrophils # (Auto) 2.93 K/uL Lymphocytes # (Auto) 1.70 K/uL Monocytes # (Auto) 0.30 K/uL Eosinophils # (Auto) 0.17 K/uL Basophils # (Auto) 0.02 K/uL RDW Standard Deviation 48.7 fL RDW Coefficient of Variation 14.2 % Immature Granulocyte % (Auto) 0.6 % Immature Granulocyte # (Auto) 0.03 K/uL Prothrombin Time 11.6 SECONDS Prothromb Time International Ratio 1.1 Activated Partial Thromboplast Time 29.4 SECONDS Partial Thromboplastin Ratio 1.1 D-Dimer 620 ug/L FEU Sodium Level 141 mmol/L Potassium Level 3.9 mmol/L Chloride Level 106 mmol/L Carbon Dioxide Level 27 mmol/L Anion Gap 8.0 mmol/L Blood Urea Nitrogen 13 mg/dl Creatinine 0.68 mg/dl Est Creatinine Clear Calc Drug Dose 99.0 ml/min Estimated GFR () 126.8 Estimated GFR (Non- 109.4 BUN/Creatinine Ratio 19.1 Random Glucose 90 mg/dl Calcium Level 8.7 mg/dl Magnesium Level 2.1 mg/dl Total Bilirubin 0.5 mg/dl Aspartate Amino Transf (AST/SGOT) 10 U/L Alanine Aminotransferase (ALT/SGPT) 18 U/L Alkaline Phosphatase 73 U/L Total Protein 7.3 gm/dl Albumin 3.8 gm/dl Globulin 3.5 gm/dl Albumin/Globulin Ratio 1.1 Lipase 137 U/L Test 12/30/16 07:30 Hemoglobin 13.3 g/dL neg cdiff stool cultures/parasites sent by ER pending Medication Reconciliation New Medications: Hydrocortisone 2.5% (Rectal) (Anusol-Hc 2.5%) 2.5 % Cre 1 APPLN TOP BID for 5 Days, #30 GM 1 Refill Hydrocortisone Acetate (Rectal (Anusol-Hc) 25 Mg Sup 1 SUPP LA BID for 5 Days, #14 SUPP use only if cream does not seem to be helping enough Continued Medications: Enoxaparin (Lovenox) 60 Mg/0.6 Ml Inj 60 MG SQ Q12H, SYR Omeprazole (Prilosec) 20 Mg Cap 20 MG PO DAILY, CAP Sertraline (Zoloft) 50 Mg Tab 50 MG PO DAILY, TAB Discharge Exam Physical Exam: General Appearance: no apparent distress Eyes: EOMI ENT: hearing grossly normal Respiratory/Chest: no respiratory distress, no accessory muscle use 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, alert Skin: normal color, warm/dry Hospital Course GI bleeding -clinical picture entirely consistent with hemorrhoids (blood only with BM, bright red blood but absolutely no hemodynamic instability despite bleeding for a week, copious external hemorrhoids on PE, no bleeding, but blood on SHALINI) -stable/safe for home -d/w pt risks/benefits - since no true hemorrhage and most likely low risk source of bleeding - better option will be to treat hemorrhoids (see below) and continue anticoagulation since PE only ~6wks ago (see below as well) -GI referral for colo for completeness PE -mid october - so only on anticoagulation ~8wks thus far -for bed bug exterminator consequences (pulmonary HTN, R heart strain, etc) appearing better to treat for longer duration and allow for more remodeling; does have filter so if bleeding were severe, at least she would be protected from worse short term consequences, but that does not appear to be the case -d dimer still up so if ceasing anticoagulation, would also still be fairly high risk for recurrent clotting issues -"bottom line" is with bleeding not being severe, risk/benefit favors continuing to treat PE for intermediate outcomes hemorrhoids -anusol x 5 more days -outpt f/u -?banding or surgery if becomes an ongoing problem stable for home Total Time Spent: Less than 30 minutes This includes examination of the patient, discharge planning, medication reconciliation, and communication with other providers. Discharge Instructions Please refer to the electronic Patient Visit Report (Discharge Instructions) for additional information.
[2017-01-02 18:33] LABS: O&P GIARDIA AG NOT DETECTED (NOT DETECTED)
[2017-01-06 16:55] LABS: CRYPTOSPORIDIUM AG TC 37213 NOT DETECTED (NOT DETECTED); ISOSPORA+CYCLOSPORA NOT DETECTED; O&P SOURCE OTHER-STOOL
== END 2016-12-30 11:03 | disposition home or self-care (01) ==
LOC: C.EDB 13:01 → C.MSN 16:09 → ENRESERV 17:06
PROVIDERS: ADMIT Family Medicine; ATTEND Family Medicine
DX: K64.8 Other hemorrhoids (principal); Z79.01 Long term (current) use of anticoagulants; I26.99 Other pulmonary embolism without acute cor pulmonale; Q87.2 Congenital malformation syndromes predominantly involving limbs; J45.909 Unspecified asthma, uncomplicated; E55.9 Vitamin D deficiency, unspecified; F32.9 Major depressive disorder, single episode, unspecified; F41.9 Anxiety disorder, unspecified; Z79.899 Other long term (current) drug therapy